=== PATIENT | female | born 1990 | race Caucasian/White ===

== ENCOUNTER → 2018-08-09 | Outpatient (CLI) | payer BC | LOC: HYPER 08-08 14:34 | DX: T81.31XA Disruption of external operation (surgical) wound, not elsewhere classified, initial encounter (principal); L02.415 Cutaneous abscess of right lower limb; L08.9 Local infection of the skin and subcutaneous tissue, unspecified; M25.571 Pain in right ankle and joints of right foot; Y92.89 Other specified places as the place of occurrence of the external cause; Y83.8 Other surgical procedures as the cause of abnormal reaction of the patient, or of later complication, without mention of misadventure at the time of the procedure ==

== ENCOUNTER → 2018-08-11 | Outpatient (CLI) | payer BC | LOC: HYPER 06:43 | DX: T81.31XD Disruption of external operation (surgical) wound, not elsewhere classified, subsequent encounter (principal); L02.415 Cutaneous abscess of right lower limb; L08.9 Local infection of the skin and subcutaneous tissue, unspecified; M25.571 Pain in right ankle and joints of right foot; Y83.8 Other surgical procedures as the cause of abnormal reaction of the patient, or of later complication, without mention of misadventure at the time of the procedure ==

== ENCOUNTER → 2018-08-16 | Outpatient (CLI) | payer BC | LOC: HYPER 06:39 | DX: T81.31XD Disruption of external operation (surgical) wound, not elsewhere classified, subsequent encounter (principal); L02.415 Cutaneous abscess of right lower limb; L08.9 Local infection of the skin and subcutaneous tissue, unspecified; M25.571 Pain in right ankle and joints of right foot; Y83.8 Other surgical procedures as the cause of abnormal reaction of the patient, or of later complication, without mention of misadventure at the time of the procedure ==

== ENCOUNTER → 2018-08-24 | Outpatient (CLI) | payer BC | LOC: HYPER 08-22 06:17 | DX: T81.31XD Disruption of external operation (surgical) wound, not elsewhere classified, subsequent encounter (principal); L02.415 Cutaneous abscess of right lower limb; L08.9 Local infection of the skin and subcutaneous tissue, unspecified; M25.571 Pain in right ankle and joints of right foot; Y83.8 Other surgical procedures as the cause of abnormal reaction of the patient, or of later complication, without mention of misadventure at the time of the procedure ==

== ENCOUNTER → 2018-09-01 | Outpatient (CLI) | payer BC | LOC: HYPER 06:32 | DX: T81.31XD Disruption of external operation (surgical) wound, not elsewhere classified, subsequent encounter (principal); L02.415 Cutaneous abscess of right lower limb; L08.9 Local infection of the skin and subcutaneous tissue, unspecified; M25.571 Pain in right ankle and joints of right foot; Y83.8 Other surgical procedures as the cause of abnormal reaction of the patient, or of later complication, without mention of misadventure at the time of the procedure ==

== ENCOUNTER → 2018-09-08 | Outpatient (CLI) | payer BC | LOC: HYPER 06:54 | DX: T81.89XD Other complications of procedures, not elsewhere classified, subsequent encounter (principal); L02.415 Cutaneous abscess of right lower limb; L08.9 Local infection of the skin and subcutaneous tissue, unspecified; M25.571 Pain in right ankle and joints of right foot; Y83.8 Other surgical procedures as the cause of abnormal reaction of the patient, or of later complication, without mention of misadventure at the time of the procedure ==

== ENCOUNTER → 2018-09-12 | Outpatient (CLI) | payer BC | LOC: HYPER 12:40 | DX: T81.31XD Disruption of external operation (surgical) wound, not elsewhere classified, subsequent encounter (principal); L02.415 Cutaneous abscess of right lower limb; L08.9 Local infection of the skin and subcutaneous tissue, unspecified; M25.571 Pain in right ankle and joints of right foot; Y83.8 Other surgical procedures as the cause of abnormal reaction of the patient, or of later complication, without mention of misadventure at the time of the procedure ==

== ENCOUNTER → 2018-09-15 | Outpatient (CLI) | payer BC | LOC: HYPER 06:58 | DX: T81.31XD Disruption of external operation (surgical) wound, not elsewhere classified, subsequent encounter (principal); L02.415 Cutaneous abscess of right lower limb; L08.9 Local infection of the skin and subcutaneous tissue, unspecified; M25.571 Pain in right ankle and joints of right foot; Y83.8 Other surgical procedures as the cause of abnormal reaction of the patient, or of later complication, without mention of misadventure at the time of the procedure ==

== ENCOUNTER → 2018-09-21 | Outpatient (CLI) | payer BC | LOC: HYPER 06:41 | DX: T81.31XD Disruption of external operation (surgical) wound, not elsewhere classified, subsequent encounter (principal); L02.415 Cutaneous abscess of right lower limb; L08.9 Local infection of the skin and subcutaneous tissue, unspecified; M25.571 Pain in right ankle and joints of right foot; Y83.8 Other surgical procedures as the cause of abnormal reaction of the patient, or of later complication, without mention of misadventure at the time of the procedure ==

== ENCOUNTER → 2018-09-28 | Outpatient (CLI) | payer BC | LOC: HYPER 06:56 | DX: T81.31XD Disruption of external operation (surgical) wound, not elsewhere classified, subsequent encounter (principal); L02.415 Cutaneous abscess of right lower limb; L08.9 Local infection of the skin and subcutaneous tissue, unspecified; M25.571 Pain in right ankle and joints of right foot; Y83.8 Other surgical procedures as the cause of abnormal reaction of the patient, or of later complication, without mention of misadventure at the time of the procedure ==

== ENCOUNTER → 2018-10-12 | Outpatient (CLI) | payer BC | LOC: HYPER 06:39 | DX: T81.31XD Disruption of external operation (surgical) wound, not elsewhere classified, subsequent encounter (principal); L02.415 Cutaneous abscess of right lower limb; L08.9 Local infection of the skin and subcutaneous tissue, unspecified; M25.571 Pain in right ankle and joints of right foot; Y83.8 Other surgical procedures as the cause of abnormal reaction of the patient, or of later complication, without mention of misadventure at the time of the procedure ==

== ENCOUNTER → 2018-10-31 | Outpatient (CLI) | payer BC | LOC: HYPER 06:57 | DX: T81.31XD Disruption of external operation (surgical) wound, not elsewhere classified, subsequent encounter (principal); L02.415 Cutaneous abscess of right lower limb; L08.9 Local infection of the skin and subcutaneous tissue, unspecified; M25.571 Pain in right ankle and joints of right foot; Y83.8 Other surgical procedures as the cause of abnormal reaction of the patient, or of later complication, without mention of misadventure at the time of the procedure ==

== ENCOUNTER → 2018-11-14 | Outpatient (CLI) | payer BC | LOC: HYPER 07:04 | DX: T81.31XD Disruption of external operation (surgical) wound, not elsewhere classified, subsequent encounter (principal); L02.415 Cutaneous abscess of right lower limb; L08.9 Local infection of the skin and subcutaneous tissue, unspecified; M25.571 Pain in right ankle and joints of right foot; Y83.8 Other surgical procedures as the cause of abnormal reaction of the patient, or of later complication, without mention of misadventure at the time of the procedure ==

== ENCOUNTER → 2018-12-14 | Outpatient (CLI) | payer BC | LOC: HYPER 10-27 08:12 | DX: T81.31XD Disruption of external operation (surgical) wound, not elsewhere classified, subsequent encounter (principal); L02.415 Cutaneous abscess of right lower limb; L08.9 Local infection of the skin and subcutaneous tissue, unspecified; M25.571 Pain in right ankle and joints of right foot; Y83.8 Other surgical procedures as the cause of abnormal reaction of the patient, or of later complication, without mention of misadventure at the time of the procedure ==

== ENCOUNTER → 2019-01-05 | Outpatient (CLI) | payer BC | LOC: HYPER 10-19 09:40 | DX: T81.31XD Disruption of external operation (surgical) wound, not elsewhere classified, subsequent encounter (principal); L02.415 Cutaneous abscess of right lower limb; L08.9 Local infection of the skin and subcutaneous tissue, unspecified; M25.571 Pain in right ankle and joints of right foot; Y83.8 Other surgical procedures as the cause of abnormal reaction of the patient, or of later complication, without mention of misadventure at the time of the procedure ==

== ENCOUNTER → 2019-09-05 | Outpatient (CLI) | payer BC | LOC: HYPER 10:57 | PROVIDERS: ATTEND Emergency Medicine | DX: T81.31XD Disruption of external operation (surgical) wound, not elsewhere classified, subsequent encounter (principal); L02.415 Cutaneous abscess of right lower limb; L08.9 Local infection of the skin and subcutaneous tissue, unspecified; M25.571 Pain in right ankle and joints of right foot; Z90.49 Acquired absence of other specified parts of digestive tract; Y83.8 Other surgical procedures as the cause of abnormal reaction of the patient, or of later complication, without mention of misadventure at the time of the procedure ==

== ENCOUNTER → 2019-09-19 | Outpatient (CLI) | payer BC | LOC: HYPER 14:38 | PROVIDERS: ATTEND Emergency Medicine | DX: T81.89XD Other complications of procedures, not elsewhere classified, subsequent encounter (principal); L02.415 Cutaneous abscess of right lower limb; L08.9 Local infection of the skin and subcutaneous tissue, unspecified; M25.571 Pain in right ankle and joints of right foot; Z90.49 Acquired absence of other specified parts of digestive tract; Y83.8 Other surgical procedures as the cause of abnormal reaction of the patient, or of later complication, without mention of misadventure at the time of the procedure ==

== ENCOUNTER → 2019-09-28 | Outpatient (CLI) | payer BC | LOC: HYPER 14:12 | PROVIDERS: ATTEND Emergency Medicine | DX: T81.31XD Disruption of external operation (surgical) wound, not elsewhere classified, subsequent encounter (principal); L02.415 Cutaneous abscess of right lower limb; L08.9 Local infection of the skin and subcutaneous tissue, unspecified; M25.571 Pain in right ankle and joints of right foot; Y83.8 Other surgical procedures as the cause of abnormal reaction of the patient, or of later complication, without mention of misadventure at the time of the procedure ==

== ENCOUNTER → 2019-10-12 | Outpatient (CLI) | payer BC | LOC: HYPER 09:33 | PROVIDERS: ATTEND Emergency Medicine | DX: T81.31XD Disruption of external operation (surgical) wound, not elsewhere classified, subsequent encounter (principal); L97.812 Non-pressure chronic ulcer of other part of right lower leg with fat layer exposed; L02.415 Cutaneous abscess of right lower limb; L08.9 Local infection of the skin and subcutaneous tissue, unspecified; M25.571 Pain in right ankle and joints of right foot; Y83.8 Other surgical procedures as the cause of abnormal reaction of the patient, or of later complication, without mention of misadventure at the time of the procedure ==

== ENCOUNTER → 2019-11-01 | Outpatient (CLI) | payer BC | LOC: HYPER 15:36 | PROVIDERS: ATTEND Emergency Medicine | DX: T81.31XD Disruption of external operation (surgical) wound, not elsewhere classified, subsequent encounter (principal); L97.812 Non-pressure chronic ulcer of other part of right lower leg with fat layer exposed; L02.415 Cutaneous abscess of right lower limb; L08.9 Local infection of the skin and subcutaneous tissue, unspecified; M25.571 Pain in right ankle and joints of right foot; Y83.8 Other surgical procedures as the cause of abnormal reaction of the patient, or of later complication, without mention of misadventure at the time of the procedure ==

== ENCOUNTER → 2019-12-06 | Outpatient (CLI) | payer BC | LOC: HYPER 09:13 | PROVIDERS: ATTEND Emergency Medicine | DX: T81.31XD Disruption of external operation (surgical) wound, not elsewhere classified, subsequent encounter (principal); L02.415 Cutaneous abscess of right lower limb; L97.812 Non-pressure chronic ulcer of other part of right lower leg with fat layer exposed; L08.9 Local infection of the skin and subcutaneous tissue, unspecified; M25.571 Pain in right ankle and joints of right foot; Y83.8 Other surgical procedures as the cause of abnormal reaction of the patient, or of later complication, without mention of misadventure at the time of the procedure ==

== ENCOUNTER → 2019-12-14 | Outpatient (CLI) | payer BC | LOC: HYPER 09:16 | PROVIDERS: ATTEND Emergency Medicine | DX: T81.31XD Disruption of external operation (surgical) wound, not elsewhere classified, subsequent encounter (principal); L97.812 Non-pressure chronic ulcer of other part of right lower leg with fat layer exposed; L02.415 Cutaneous abscess of right lower limb; L08.9 Local infection of the skin and subcutaneous tissue, unspecified; M25.571 Pain in right ankle and joints of right foot; Y83.8 Other surgical procedures as the cause of abnormal reaction of the patient, or of later complication, without mention of misadventure at the time of the procedure ==

== ENCOUNTER → 2020-01-09 | Outpatient (CLI) | payer BC | LOC: HYPER 10:49 | PROVIDERS: ATTEND Emergency Medicine | DX: T81.31XD Disruption of external operation (surgical) wound, not elsewhere classified, subsequent encounter (principal); L97.812 Non-pressure chronic ulcer of other part of right lower leg with fat layer exposed; L02.415 Cutaneous abscess of right lower limb; L08.9 Local infection of the skin and subcutaneous tissue, unspecified; M25.571 Pain in right ankle and joints of right foot; Y83.8 Other surgical procedures as the cause of abnormal reaction of the patient, or of later complication, without mention of misadventure at the time of the procedure ==

== ENCOUNTER → 2020-01-09 | Outpatient (CLI) | payer BC | LOC: LAB 12:28 | PROVIDERS: ATTEND Emergency Medicine | DX: U07.1 COVID-19 (principal) ==